=== PATIENT | male | born 1990 | race Caucasian/White ===

== ENCOUNTER 2025-07-07 21:18 | Emergency (ER) | payer MEDICAID, OTHER ==
[~2025-07-07] VITALS: Ht 175.3 cm; Wt 78.5 kg
[2025-07-07 21:23] VITALS: BP 120/91; TEMP 98.7; O2SAT 99
[2025-07-07] MEDS ORDERED: KETOROLAC TROMETHAMINE INJ 30 MG/ML VIAL IM ONE (22:00)
[2025-07-07] MEDS ORDERED: KETOROLAC TROMETHAMINE INJ 30 MG/ML VIAL ONE (22:01)
== END 2025-07-07 22:04 | disposition left against medical advice (07) ==
LOC: ER 21:19
DX: R19.09 Other intra-abdominal and pelvic swelling, mass and lump (principal)
CPT/HCPCS: J1885